=== PATIENT | male | born 1965 | race Caucasian/White ===

== ENCOUNTER 2017-01-15 07:07 | Day surgery (SDC) | payer BC ==
[~2017-01-15] VITALS: Ht 185.4 cm; Wt 82.0 kg
== END 2017-01-15 12:15 | disposition home or self-care (01) ==
LOC: RAD.S 07:07 → EDSTATUS 09:00 → RAD.S 09:00
PROC: 0BBL3ZX Excision of Left Lung, Percutaneous Approach, Diagnostic (ICD-10-PCS; principal; 2017-01-15)
DX: J84.89 Other specified interstitial pulmonary diseases (principal); F17.210 Nicotine dependence, cigarettes, uncomplicated; Z88.8 Allergy status to other drugs, medicaments and biological substances; Z79.899 Other long term (current) drug therapy